=== PATIENT | male | born 1985 | race American Indian/Alaskan Native ===

== ENCOUNTER 2019-11-16 13:26 | Emergency (ER) | payer SELFPAY ==
[2019-11-16 14:06] VITALS: BP 143/88
--- NOTE | 2019-11-16 15:25 | Emergency Department Report ---
Chief Complaint: Urogenital-Male Stated Complaint: GENITAL AREA PAIN Time Seen by Provider: 11/16/19 15:08 - HPI History of Present Illness: Patient is a 35-year-old male presents emergency room with complaints of penile pain that began a couple days ago. He states he has mild dysuria. He denies any penile discharge, vomiting, fever, diarrhea, pain or swelling the testicles, abdominal pain, urinary retention. He denies any past medical history. No allergies to medications. Vitals are normal on exam: No lesions or blisters present to the penis, no signs of phimosis or paraphimosis, no erythema, no obvious drainage, no testicular tenderness to palpation bilaterally, no scrotal edema, normal testicular lie, normal cremasteric reflex vp product management: luz Patient is presenting with STD-like symptoms He denies any penile discharge, vomiting, fever, diarrhea, pain or swelling the testicles, abdominal pain, urinary retention. He has no clinical signs of active herpes outbreak, orchitis, epididymitis, torsion, hydrocele/varicocele, no obvious nodules Patient will be referred to the health department or clinic for full STD panel advised pt Please follow-up with the clinic or the health department for full STD panel. Please have any partner tested and treated as well. Please avoid sexual intercourse. Return to emergency room for any new or worsening symptoms. Medical screening examination performed and there is no threat to life or limb at this time - Exam Vital Signs: Vital Signs 11/16/19 14:03 Temperature 98.6 F Pulse Rate 79 Respiratory 14 Rate Blood Pressure 143/88 O2 Sat by Pulse 100 Oximetry MSE screening note: Focused history and physical exam performed. ED Disposition for MSE Clinical Impression: Penile pain, Concern about STD in male without diagnosis Disposition: Z-07 MED SCREENING EXAM-LEFT Is pt being admited?: No Does the pt Need Aspirin: No Condition: Stable Instructions: Sexually Transmitted Diseases (ED), Safe Sex (ED) Additional Instructions: Please follow-up with the clinic or the health department for full STD panel. Please have any partner tested and treated as well. Please avoid sexual intercourse. Return to emergency room for any new or worsening symptoms. Whereoscope Address: [address] [place] [id number] Referrals: [facility] [Outside] - 2-3 Days Time of Disposition: 15:24 Print Language: SERBIAN
== END 2019-11-16 15:52 | disposition left against medical advice (07) ==
LOC: ED 13:26
DX: N48.89 Other specified disorders of penis (principal); Z53.21 Procedure and treatment not carried out due to patient leaving prior to being seen by health care provider